=== PATIENT | male | born 1975 | race Two or more races ===

== ENCOUNTER 2024-01-07 10:04 | Emergency (ER) | payer OTHER ==
[~2024-01-07] VITALS: Ht 180.3 cm; Wt 81.6 kg
[2024-01-07] MEDS ORDERED: KETOROLAC TROMETHAMINE 60 MG VIAL IM ONE (10:45)
[2024-01-07] MEDS ORDERED: MEPERIDINE HCL/PF 50 MG/ML VIAL IM ONE (14:00)
== END 2024-01-07 14:23 | disposition home or self-care (01) ==
LOC: ER 10:04
DX: M54.50 Low back pain, unspecified (principal); M62.830 Muscle spasm of back